=== PATIENT | female | born 1990 | race Caucasian/White ===

== ENCOUNTER 2019-07-25 11:46 | Inpatient (IN) | payer MEDICAID ==
[2019-07-25] MEDS ORDERED: Acetaminophen 325 MG Tab PO PRN (13:10)
[2019-07-25] MEDS ORDERED: Sodium Chloride 0.9% 10 ML Syringe FLUSH PRN (13:10)
[2019-07-25] MEDS ORDERED: Oxytocin/Normal Saline 30 UNIT/500 ML BAG IV SCH (13:15)
[2019-07-25] MEDS ORDERED: Lactated Ringers 1,000 ML IV SCH (13:15)
--- NOTE | 2019-07-25 15:50 | HP ---
LOCATION: [facility]. HISTORY OF PRESENT ILLNESS: The patient is a 28-year-old G1 at 37 weeks and 4 days, who noticed leakage of fluid at roughly 9 a.m. this morning. No real contractions. She had no vaginal bleeding. Good movement. The patient has had good care with Dr. Mccrary. OB HISTORY: She is a G1. 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 PAST MEDICAL HISTORY: Negative. PAST SURGICAL HISTORY: Negative. SOCIAL HISTORY: The patient does not smoke. ALLERGIES: The patient has no known drug allergies. LABS: Pap smear was normal. Blood type is A positive, antibody negative, rubella immune, RPR negative, hep B negative, HIV negative, gonorrhea negative. She did have a chlamydia test of cure, which was negative. One-hour was normal. Group B Strep was negative. Her EDC is 08/11/2019 that is consistent with a 22-week gestational age ultrasound, which did show mildly abnormal kidneys including a cyst on the kidney and slightly small kidneys. She also had a followup ultrasound, which showed that persisted, therefore, we will likely do a ultrasound. PHYSICAL EXAMINATION: The patient is afebrile. Vital signs are stable. EFM is reactive and reassuring. There are irregular contractions. Bedside ultrasound did confirm cephalic, cervix is 1 cm, 60% effaced, and -3 station. LABORATORY DATA: White blood cell count 7.9, hemoglobin 13.8, and platelets of 221. ASSESSMENT AND PLAN: Intrauterine at term with premature rupture of membranes, group B Strep negative. I did advise this patient that we should start Pitocin since she has now been ruptured for over 4 hours and no signs of any active labor. She did consent to that, and we will do the renal ultrasound to follow up the kidneys. We will plan for vaginal delivery. [facility] /[id number] MTDD
[2019-07-25] MEDS ORDERED: hydrOXYzine HCl 25 MG Tab PO ONE (20:56)
[2019-07-25] MEDS ORDERED: Nalbuphine 10 MG/1 ML Vial IM ONE (22:33)
[2019-07-25] MEDS ORDERED: Nalbuphine 10 MG/1 ML Vial ONE (22:46)
[2019-07-25] MEDS: Lactated Ringers 1,000 ML IV SCH (23:06)
[2019-07-26] MEDS: Lactated Ringers 1,000 ML IV SCH ×6 (00:32→18:05)
[2019-07-26] MEDS ORDERED: fentaNYL 100 MCG/2 ML SDV IVPUSH ONE ×2 (00:42→02:36)
[2019-07-26] MEDS ORDERED: fentaNYL 100 MCG/2 ML SDV ONE (03:30)
[2019-07-26] MEDS ORDERED: EPINEPHrine 1 MG/1 ML Amp ONE ×2 (03:30→16:06)
[2019-07-26] MEDS ORDERED: Ondansetron 4 MG/2 ML SDV ONE (03:31)
[2019-07-26] MEDS ORDERED: Ondansetron 4 MG/2 ML SDV IV PRN (03:35)
--- NOTE | 2019-07-26 04:04 | PCM.PRNOTE ---
- Free Text/Narrative Note: Requested to provide analgesia to full term patient in severe pain. Upon entering the room, patient is sitting on edge of bed complaining of severe abdominal/pelvic pain and discomfort. Procedure was discussed with patient including adverse outcomes and expectations. Pt consented to analgesia, SAB/ IT. Pt placed into a proper sitting position. Landmarks for SAB/IT were identified and marked. Hands were washed and appropriate PPE was applied. Back was prepped with betadine x3. A sterile, transparent, fenestrated drape was applied. Excess betadine was removed. Using 3 mL of a 1% lidocaine solution , a skin wheel was placed at the L2/L3 interspace. A 24 ga (4 inch) Pencan spinal needle was inserted until positive for CSF. Negative for heme or paresthesias. Injected fentanyl 20 mcg, sufentanil 20 mcg, and 7.5 mg of a 0.75 % bupivacaine solution with an epi wash. Pt was placed left lateral position for approximately 20 minutes. There were zero complications or adverse outcomes. Will continue to monitor. Procedure Date & Time: 07/26/19 [id number]
[2019-07-26] MEDS ORDERED: Naloxone 2 MG/2 ML Syringe IVPUSH PRN (05:06)
[2019-07-26] MEDS ORDERED: Methylergonovine 0.2 MG/1 ML Amp IM PRN (05:06)
[2019-07-26] MEDS ORDERED: Tranexamic Acid 1,000 MG in Sodium Chloride 0.9% 100 ML IV PRN (05:06)
[2019-07-26] MEDS ORDERED: diphenhydrAMINE 50 MG/ML SDV IVPUSH PRN (05:06)
[2019-07-26] MEDS ORDERED: Acetaminophen/oxyCODONE 325-5 MG Tab PO PRN (05:06)
[2019-07-26] MEDS ORDERED: Misoprostol 400 MCG (4 X 100 MCG TAB) RECTAL PRN (05:06)
[2019-07-26] MEDS ORDERED: ePHEDrine 50 MG/ML SDV IVPUSH PRN (05:06)
[2019-07-26] MEDS ORDERED: Carboprost Tromethamine 250 MCG/1 ML Amp IM PRN (05:06)
[2019-07-26] MEDS ORDERED: ceFAZolin 2 GM in Premix Bag 1 BAG IV ONE (05:08)
[2019-07-26] MEDS ORDERED: Citric Acid/Sodium Citrate Solution 30 ML Cup PO ONE (05:08)
[2019-07-26] MEDS ORDERED: Oxytocin/Normal Saline 60 UNIT/1,000 ML BAG ONE (05:20)
[2019-07-26] MEDS: Prenatal Multivitamin with Calcium/Folic Acid/Iron Tab PO SCH (09:42)
[2019-07-26] MEDS: Simethicone 80 MG Tab.Chew PO SCH ×5 (09:42→21:15)
--- NOTE | 2019-07-26 11:58 | OR ---
DATE: 07/26/2019 PREOPERATIVE DIAGNOSES: 1. Intrauterine at 37-5/7th weeks confirmed with 22-1/7th week ultrasound. 2. Nonreassuring status. 3. tachycardia. 4. Rupture of membranes approximately 20 to 21 hour prior to delivery. 5. History of chlamydia in the , treated and negative on 05/06/2019. 6. Group B Streptococcus negative. 7. Concerns with kidney being asymmetric with no other concerns, will do followup. 8. 1, para 0. POSTOPERATIVE DIAGNOSES: 1. Intrauterine at 37-5/7th weeks confirmed with 22-1/7th week ultrasound-delivered. 2. Nonreassuring status. 3. tachycardia. 4. Rupture of membranes approximately 20 to 21 hour prior to delivery. 5. History of chlamydia in the , treated and negative on 05/06/2019. 6. Group B Streptococcus negative. 7. Concerns with kidney being asymmetric with no other concerns, will do followup. 8. 1, para 0. 9. Nuchal cord x1, reduced bluntly with delivery. PROCEDURE PERFORMED: Pitocin on 07/25/2019 and 07/26/2019 followed by IUPC on 07/26/2019 followed by primary low transverse with 2-layer uterine closure. REVENUE STAMP CLERK: Milla Mcpherson MD ANESTHESIA: Spinal. ESTIMATED BLOOD LOSS: 700 mL. IV FLUIDS: 900 mL. URINE OUTPUT: 150 mL and dark quentin with pink tinged with Hunt placed prior to delivery. START: 6:04. UTERINE INCISION: 6:05. DELIVERY: 6:05. STOP: 6:22. FINDINGS: Female, scores of 9 and 9, weight pending. DESCRIPTION OF PROCEDURE IN DETAIL: After proper consent was obtained, the patient was brought the operating room, where spinal anesthetic was administered. Hunt was placed under preoperative under sterile conditions. Abdomen was prepped and draped in normal sterile fashion using Betadine scrubs for timeliness. The patient was placed in supine position with left lateral tilt. A skin incision was then made over the lower abdomen in a transverse Pfannenstiel-type fashion. This was carried down the fascia and scored in the midline. Subcutaneous tissue was raked laterally bluntly, and fascial incision was extended superiorly, inferiorly and laterally using blunt technique, it from rectus muscles and pyramidalis muscles as well. Rectus muscles were in the midline with blunt technique. Abdominal cavity was entered with blunt technique. Incision was extended superiorly and inferiorly with blunt technique. Dennis O large retractor was then introduced and used. Vesicouterine peritoneum was identified and incised in transverse fashion with Metzenbaum scissors and bladder flap was made digitally. A curvilinear incision was made on the lower uterine segment. At 0605 hours, uterus was entered sharply. Clear fluid returned. Uterine incision was then extended in transverse fashion using blunt technique. vertex was then delivered up from the pelvis through the uterine incision followed by rest of the infant with nuchal cord x1 reduced bluntly with delivery. Mouth and nares were suctioned on the patient's lap, cord was doubly clamped and cut, and the was brought over to team. Then, approximately 10 mL of cord blood was then obtained for labs. Placenta then delivered with gentle cord traction and fundal massage. Uterine cavity then cleared of all blood clots and debris with lap sponge. Espinoza clamps were used to grasp the uterine incision. This was closed in a running locked fashion and tied at lateral margins with 1-0 Vicryl. Second imbricating layer was then applied, using 1-0 Vicryl and tied at lateral margins. Right lateral portion of the incision did have some bleeding and 1 krfgjf-sv-jyfen stitch was applied and hemostasis was reassured. First inspection of the uterine incision revealed hemostasis. Dennis O retractor was then removed and paracolic gutters were then cleared of all blood clots and debris with lap sponge. Anterior cul-de-sac was irrigated copiously and all blood clots and debris removed. Second and final inspection of the uterine incision and anterior cul-de-sac revealed hemostasis. Rectus muscles were then reapproximated in the midline with yjnqwq-ur-kjbyp stitch using 1-0 Vicryl. Subfascial tissue was found to be hemostatic and fascia was closed in a running fashion and tied at lateral margins with 0 looped PDS. Subcutaneous tissue was irrigated copiously. Hemostasis was reassured. Skin was reapproximated with burke. Sterile Aquacel dressing was applied. The uterine fundus was firm and massaged at the conclusion of this case -2 below the umbilicus. No immediate complications were noted. Sponge, lap, and needle counts were correct. The patient received 2 g of Ancef preoperatively, Pitocin per protocol and will receive Toradol at the conclusion of case for pain control. Mother and infant are currently stable at the time of dictation. [facility] /[id number]
--- NOTE | 2019-07-26 12:19 | PN ---
DATE: 07/25/2019 SUBJECTIVE: The patient is mildly feeling her contractions, not breathing through them or anything. She states they are mild. OBJECTIVE: heart tones in the 150s range, some accelerations have been seen. Tocometer reveals contractions every 2 to 3 minutes. Pitocin is currently at 4 milliunits per minute. Vaginal exam reveals her to be 1.5 cm, 60% effaced, -1 station, vertex suspected. Clear fluid leaking from the vaginal area. ASSESSMENT: 1. Intrauterine 37 and 4/7th weeks, confirmed with 22 and /7th week ultrasound. 2. Rupture of membranes at 9:00 a.m. on 07/25/2019. No evidence of labor upon admission. Currently on Pitocin augmentation. 3. History of chlamydia being positive, treated and then negative after treatment on 05/06/2019. 4. Group B Streptococcus negative. 5. Concerns with kidney asymmetry on ultrasound. We will re-evaluate after delivery with ultrasound of the kidneys. 6. G1, P0. PLAN: We will continue close augmentation. Follow clinically and closely. Follow for any signs or symptoms of infection, tachycardia, fever or any other concerns. The patient understands and agrees. [facility] /[id number]
--- NOTE | 2019-07-26 12:34 | PN ---
DATE: 07/26/2019 SUBJECTIVE: The patient is breathing through her contractions. She has been given some oxygen, IV fluids, and turned as there were concerns with heart tones after Nubain was given. OBJECTIVE: heart tones in the 150s. I can see at least 2 accelerations within the last 10 minutes. There was 1 with vaginal exam. Tocometer reveals contractions every 2 minutes on average. Vaginal exam reveals her to be 1.5 cm to 2 cm, 60% effaced, -3 station. Possible caput felt, and IUPC placed after discussion with the patient. ASSESSMENT AND PLAN: Intrauterine at 37 and 5/7th weeks now, confirmed with 22 and 1/7th week ultrasound with rupture of membranes at 9 a.m. on 07/25/2019 without labor. Given Pitocin. GBS negative. G1, P0. Plan: At this point in time, we will continue to follow and maternal status closely. The patient is currently afebrile, and we will follow heart tones as well. The patient understands and agrees with the above treatment plan. [facility] /[id number]
--- NOTE | 2019-07-26 12:52 | PN ---
DATE: 07/26/2019 SUBJECTIVE: The patient's contractions are getting stronger. OBJECTIVE: heart tones in the 140s to 150s. Acceleration noted with vaginal exam as well as copious amounts of clear fluid with vaginal exam noted. She is 80% effaced, -1 station, vertex suspected. Tocometer reveals contractions every 2 minutes on average. MVU is appearing adequate. Pitocin is at 6 milliunits/minute. ASSESSMENT: Intrauterine now at 37 and 5/7th weeks with rupture membranes at 9 a.m. on 07/25/2019 without labor, currently on Pitocin augmentation, in group B streptococcus negative, 1 and para 0, now having cervical change, status post intrauterine and Pitocin augmentation, acceleration noted with vaginal exam and thereafter as well. PLAN: We will continue to follow clinically and closely. The patient understands and agrees with the above treatment plan. [facility] /[id number]
[2019-07-26] MEDS: Ketorolac 30 MG/ML SDV IVPUSH SCH ×2 (12:53→17:29)
--- NOTE | 2019-07-26 13:01 | PN ---
DATE: 07/26/2019 SUBJECTIVE: The patient is tolerating her contractions. She has had an intrathecal. She was 5 cm before intrathecal was given. OBJECTIVE: heart tones in the 180s to 190s. I can see at least one acceleration but also a variable deceleration and late deceleration within a 10- minute period. Tocometer reveals contractions every couple of minutes. Vaginal exam reveals her to be 5 cm, 85%-90% effaced -1 station, vertex suspected with marked caput noted which has been unchanged since prior to her intrathecal. ASSESSMENT: Intrauterine at 37-5/7th weeks confirmed at 22-1/7th week ultrasound now with rupture of membranes approximately 20 hours with distress including tachycardia and nonreassuring status. I did discuss this with the patient and her male partner, and I did discuss with them recommendation to proceed with primary low transverse . I did discuss with them risks, benefits, alternatives, and complications of including, but not limited to, infection, bleeding, damage to organs such as bowel, bladder, tubes, uterus, ovaries, sometimes fetus rarely needing a blood transfusion or further surgery, and rarer maternal or . She understands, agrees, and wishes to proceed. Verbal and written consent were obtained. Questions were answered. We will proceed to the OR as soon as crew is ready and available. They understand and agree with the above treatment plan. 2 g Ancef has been written for in 4s as well as Bicitra. Last oral intake was over an hour ago with water, and last solid intake was over at least 4 hours by their history. PLAN: We will proceed as above. They understand and agree. We will proceed to the OR as soon as crew is ready and available. [facility] /[id number]
[2019-07-26] MEDS ORDERED: Ketorolac 30 MG/ML SDV IVPUSH ONE (16:05)
[2019-07-26] MEDS ORDERED: Bupivacaine 0.75%/D5W 2 ML Amp ONE (16:06)
[2019-07-26] MEDS ORDERED: fentaNYL 100 MCG/2 ML SDV ITHECAL ONE (16:06)
[2019-07-26] MEDS ORDERED: Oxytocin/Normal Saline 30 UNIT/500 ML BAG IV ONE (16:19)
[2019-07-27] MEDS: Ketorolac 30 MG/ML SDV IVPUSH SCH (00:06)
[2019-07-27] MEDS: Acetaminophen/oxyCODONE 325-5 MG Tab PO PRN ×3 (05:57→23:45)
[2019-07-27] MEDS: Ibuprofen 800 MG Tab PO PRN ×2 (08:46→17:21)
[2019-07-27] MEDS: Docusate Sodium 100 MG Cap PO PRN ×2 (08:46→23:44)
[2019-07-27] MEDS: Simethicone 80 MG Tab.Chew PO SCH ×4 (08:46→21:14)
[2019-07-27] MEDS: Prenatal Multivitamin with Calcium/Folic Acid/Iron Tab PO SCH (08:46)
[2019-07-28] MEDS: Ibuprofen 800 MG Tab PO PRN ×2 (05:02→20:31)
[2019-07-28] MEDS: Docusate Sodium 100 MG Cap PO PRN ×2 (10:22→20:26)
[2019-07-28] MEDS: Prenatal Multivitamin with Calcium/Folic Acid/Iron Tab PO SCH (10:22)
[2019-07-28] MEDS: Ferrous Sulfate 325 MG Tab PO SCH (10:22)
[2019-07-28] MEDS: Simethicone 80 MG Tab.Chew PO SCH ×4 (10:23→22:18)
--- NOTE | 2019-07-28 11:47 | PN ---
DATE: 07/27/2019 Postop day #1 status post primary low transverse with 2-layer uterine closure. SUBJECTIVE: The patient is tolerating p.o. She has ambulated. Hunt has been removed. She has not urinated. She has not passed flatus. Pain is under control. OBJECTIVE: Vital Signs: Temperature 98.3, heart rate 62, blood pressure 114/64, respiratory rate 16. Lungs: Clear to auscultation bilaterally. Heart: S1, S2. Regular rate and rhythm. Genitourinary: Firm uterus at approximately minus 1 below umbilicus. Skin: Aquacel dressing is dry and intact. SCDs and MARJORIE hose are on. LABORATORY DATA: White cell count 16.5, hemoglobin 10, platelets 180. ASSESSMENT AND PLAN: Postop day #1 status post primary low transverse section with 2-layer uterine closure done for nonreassuring status, tachycardia, and had rupture of membranes approximately 20 to 21 hours prior to admission. No signs or symptoms of infection at this point in time. White cell count I suspect is due to demargination. We will recheck a CBC tomorrow and follow up clinically and closely. The patient understands and agrees with the above treatment plan. [facility] /[id number]
--- NOTE | 2019-07-28 11:53 | PN ---
DATE: 07/28/2019 Postoperative day #2. SUBJECTIVE: The patient is tolerating p.o., ambulating, urinating, and passing flatus. Pain is under control. OBJECTIVE: Vital Signs: Temperature 99, heart rate 68, blood pressure 108/72, respiratory rate 16. Lungs: Clear to auscultation bilaterally. Heart: S1 and S2. Regular rate and rhythm. Genitourinary: Firm uterus around the umbilicus. Aquacel dressing is dry and intact. Extremities: No peripheral edema. No calf pain. LABORATORY DATA: White cell count 10.4, hemoglobin 8.6, and platelets 177. ASSESSMENT AND PLAN: 1. Postoperative day #2, status post primary low transverse section with 2-layer uterine closure for tachycardia and nonreassuring status with rupture of membranes approximately 20 hours prior to delivery. White cell count is coming down. Hemoglobin is down to 8.6. We will watch closely. 2. Anemia of acute blood loss. Hemoglobin down to 8.6. We will watch closely. The patient is asymptomatic. We will start iron. Recheck CBC tomorrow. Otherwise, plans were discussed with the patient. She understands and agrees, possible discharge tomorrow. [facility] /[id number]
[2019-07-29] MEDS: Prenatal Multivitamin with Calcium/Folic Acid/Iron Tab PO SCH (08:23)
[2019-07-29] MEDS: Docusate Sodium 100 MG Cap PO PRN (08:23)
[2019-07-29] MEDS: Ferrous Sulfate 325 MG Tab PO SCH (08:23)
[2019-07-29] MEDS: Ibuprofen 800 MG Tab PO PRN (08:24)
[2019-07-29] MEDS: Simethicone 80 MG Tab.Chew PO SCH ×2 (08:24→14:42)
--- NOTE | 2019-07-29 12:42 | DISCH ---
ADMITTING DIAGNOSES: 1. Intrauterine at 37 and 4/7 weeks confirmed on 22 and 1/7 weeks ultrasound. 2. Rupture of membranes at approximately 9 a.m. on 07/25/2019. No evidence of labor. 3. History of chlamydia tested positive and treated and then negative on 05/06/2019. 4. GBS negative. 5. Abnormal ultrasound with asymmetric size. No other concerns. 6. G1, P0. DISCHARGE DIAGNOSES: 1. Intrauterine at 37 and 5/7 weeks confirmed on 22 and 1/7 weeks ultrasound, delivered. 2. Rupture of membranes at approximately 9 a.m. on 07/25/2019. No evidence of labor. 3. History of chlamydia tested positive and treated and then negative on 05/06/2019. 4. GBS negative. 5. Abnormal kidney ultrasound with asymmetric size. No other concerns. 6. G1, P0. 7. tachycardia. 8. Nonreassuring status. 9. Nuchal cord x1, reduced bluntly at delivery. 10.Anemia of acute blood loss, hemoglobin dropping down to 9.1 from predelivery hemoglobin of 13.8 with the lowest being 8.6, followed serially. PROCEDURE PERFORMED: Pitocin on 07/25/2019 as well as 07/26/2019 followed by IUPC and primary low transverse 2-layer uterine closure on 07/26/2019. HISTORY OF PRESENT ILLNESS: Please see H and P. SUMMARY OF HOSPITAL COURSE: The patient was admitted on the above date with the above diagnosis through Dr. Quach. Please see his notes and history and physical done by him. She had rupture of membranes. No evidence of active labor, underwent Pitocin augmentation, subsequently followed by IUPC placement and after approximately 20 to 21 hours of ruptured membranes prior, tachycardia with nonreassuring status developed and she underwent primary low transverse 2-layer uterine closure under spinal anesthetic with an EBL of 700 mL yielding a female with score of 9 and 9, weighing 7 pounds 0 ounce (3170 g) with nuchal cord x1 and reduced bluntly at delivery. Please see operative report for further details. On postop day #1 and #2, please see progress notes. Hemoglobin dropped, lowest at 8.6 on 07/28/2019. On the date of discharge, it was 9.1. The patient was tolerating p.o., was ambulating, urinating, passing flatus, and requesting discharge. PHYSICAL EXAMINATION: Vital Signs: Last set of vitals updated and listed in the chart. Temperature 98.3, blood pressure 109/75, heart rate is 93. Appearance: No apparent distress. Lungs: Clear to auscultation bilaterally. Heart: S1, S2. Regular rate and rhythm. Abdomen: Firm uterus, right above the umbilicus. Aquacel dressing is dry and intact. No peripheral edema. No calf pain. DISCHARGE LABORATORY DATA: White cell count 7.6 and 9.1, platelets 202. CONDITION ON DISCHARGE COMPARED TO CONDITION ON ADMISSION: Improved. DISCHARGE INSTRUCTIONS: 1. Diet as tolerated. 2. Activity: No lifting more than 20 pounds. No sit-ups or straining. Pelvic rest with immediate return fertility discussed with the patient. 3. Reasons to go to the emergency room were discussed with the patient in detail including, but not limited to temperature greater than 100.4; foul- smelling discharge; red or tender breasts; or increased vaginal bleeding. DISCHARGE MEDICATIONS: [id number] ibuprofen for pain, iron sulfate 325 b.i.d. x6 weeks, vitamins x6 weeks, Colace 100 mg b.i.d. p.r.n., and Percocet 5/325 1 to 2 q.6 hours p.r.n., #15, no refills. Discussed the use of these medications, adverse effects, as well as precautions with driving. FOLLOWUP: On 08/02/2019 for staple removal with her baby. Did discuss with her in the interim reasons to return or go to the emergency room in the interim with her baby as well. She understands and agrees with the above treatment plan. Please see discharge paperwork for further details as well. [facility] /[id number]
== END 2019-07-29 14:15 | disposition home or self-care (01) | DRG 787 ==
LOC: DL.OBCHECK 11:46 → DL.OB 13:10 → UNDOADMOB 13:19 → DL.OB 13:19 → DL.MS 07-26 05:18 → OBSVTOIN 07-26 06:05
PROVIDERS: ADMIT Obstetrics & Gynecology; ATTEND Family Medicine
PROC: 10D00Z1 Extraction of Products of Conception, Low, Open Approach (ICD-10-PCS; principal; 2019-07-26)
PROC: 10H07YZ Insertion of Other Device into Products of Conception, Via Natural or Artificial Opening (ICD-10-PCS; 2019-07-26)
DX: O36.8330 Maternal care for abnormalities of the fetal heart rate or rhythm, third trimester, not applicable or unspecified (principal); D62 Acute posthemorrhagic anemia; O69.81X0 Labor and delivery complicated by cord around neck, without compression, not applicable or unspecified; O99.02 Anemia complicating childbirth; Z3A.37 37 weeks gestation of pregnancy; Z37.0 Single live birth
CPT/HCPCS: 01961; 01967; 36415; 51702; 85027; 86850; 86900; 86901; A9270-GY; J0171; J0690; J1885; J2300; J2405; J2590; J3010; J7120

== ENCOUNTER 2020-10-12 09:24 | Inpatient (IN) | payer SELFPAY ==
[2020-10-12] MEDS ORDERED: Tranexamic Acid 1,000 MG in Sodium Chloride 0.9% 100 ML IV PRN ×4 (09:25)
[2020-10-12] MEDS ORDERED: Acetaminophen 325 MG Tab PO PRN (09:25)
[2020-10-12] MEDS ORDERED: Sodium Chloride 0.9% 10 ML Syringe FLUSH PRN (09:25)
[2020-10-12] MEDS ORDERED: diphenhydrAMINE 50 MG/ML SDV IVPUSH PRN (09:25)
[2020-10-12] MEDS ORDERED: Naloxone 2 MG/2 ML Syringe IVPUSH PRN (09:25)
[2020-10-12] MEDS ORDERED: Methylergonovine 0.2 MG/1 ML Amp IM PRN (09:25)
[2020-10-12] MEDS ORDERED: Citric Acid/Sodium Citrate Solution 30 ML Cup PO ONE (09:25)
[2020-10-12] MEDS ORDERED: Misoprostol 400 MCG (4 X 100 MCG TAB) RECTAL PRN (09:25)
[2020-10-12] MEDS ORDERED: Acetaminophen/oxyCODONE 325-5 MG Tab PO PRN ×2 (09:25)
[2020-10-12] MEDS ORDERED: Carboprost Tromethamine 250 MCG/1 ML Amp IM PRN (09:25)
[2020-10-12] MEDS ORDERED: ePHEDrine 50 MG/ML SDV IVPUSH PRN (09:25)
[2020-10-12] MEDS ORDERED: Ondansetron 4 MG/2 ML SDV IVPUSH PRN ×2 (09:25)
[2020-10-12] MEDS ORDERED: Oxytocin/Normal Saline 60 UNIT/1,000 ML BAG ONE (09:28)
[2020-10-12] MEDS ORDERED: Lactated Ringers 1,000 ML IV SCH (09:30)
[2020-10-12] MEDS ORDERED: Oxytocin/Normal Saline 30 UNIT/500 ML BAG IV SCH (09:30)
[2020-10-12] MEDS ORDERED: Ketorolac 30 MG/ML SDV IVPUSH SCH (09:30)
[2020-10-12] MEDS: Lactated Ringers 1,000 ML IV SCH ×4 (09:30→21:29)
[2020-10-12] MEDS: ceFAZolin 2 GM in Premix Bag 1 BAG IV ONE (10:28)
--- NOTE | 2020-10-12 13:05 | OR ---
DATE: 10/12/2020 PREOPERATIVE DIAGNOSES: 1. Intrauterine at 37 and 3/7 weeks by 6 and 1/7 weeks ultrasound. 2. Active labor upon admission. 3. Previous , request repeat low transverse . 4. GBS positive. 5. Keloid scar, discussed with the patient and shared decision made to proceed through the previous scar if not enough tissue around this area to remove it. 6. G2, P1-0-0-1. POSTOPERATIVE DIAGNOSES: 1. Intrauterine at 37 and 3/7 weeks by 6 and 1/7 weeks ultrasound, delivered. 2. Active labor upon admission. 3. Previous , request repeat low transverse . 4. GBS positive. 5. Keloid scar, discussed with the patient and shared decision made to proceed through the previous scar if not enough tissue around this area to remove it. 6. G2, P1-0-0-1. 7. Extensive scar tissue from uterus to peritoneum throughout requiring lysis of adhesions and inability to exteriorize the uterus or use Dennis O retractor. 8. Difficulty delivering vertex requiring Kiwi vacuum assistance. PROCEDURE PERFORMED: Repeat low transverse with Kiwi vacuum assistance. PARI MUTUEL TICKET SELLER: Priya Alonzo, PGY-III ; Pirya Reynolds, PGY III; and Sandy Lowery MS3. ANESTHESIA: Spinal. ESTIMATED BLOOD LOSS: 800 mL. IV FLUIDS: 400 mL of Pitocin, 2000 mL of lactated Ringer's. URINE OUTPUT: 225 mL and clear yellow. START: 10:45. UTERINE INCISION: 10:54. DELIVERY: 10:56. STOP: 11:32. FINDINGS: Female, scores 8 and 9, weight pending. DESCRIPTION OF PROCEDURE IN DETAIL: After appropriate consent was obtained, the patient was brought to the operating room, where spinal anesthetic was administered. A Hunt was placed in the preop under sterile conditions. The abdomen was prepped and draped in the normal sterile fashion. The patient was placed in supine position with left lateral tilt. A skin incision was then made over lower abdomen in transverse Pfannenstiel-type fashion over a previous scar and keloid after discussion with the patient as above. This was carried down to the fascia, which did have some scarring and difficulty delineating planes and fascia was scored in the midline. Subcutaneous tissue was raked laterally with Delcid retractor. The fascial incision was extended in transverse fashion using curved Morales's. Luther clamps x2 were used to grasp the superior aspect of the fascia, and the rectus muscle was dissected from the fascia using sharp and blunt technique. In a similar fashion, Luther clamps x2 were used to grasp the inferior portion of the incision, and rectus and pyramidalis muscles were dissected from the fascia using blunt and sharp technique. Rectus muscles were then in midline with blunt technique. Abdominal cavity was entered in blunt technique, and an incision was attempted to be opened superiorly and inferiorly with blunt technique. Scar tissue was noted from the uterus to the peritoneal region, and under direct visualization, these adhesions were lysed using electrocautery. It was felt there were significant adhesions superior to window of view, and Dennis O retractor unable to be used due to this as well as uterus unable to be exteriorized. Subsequently, bladder blade was inserted. Vesicouterine peritoneum was identified and incised in transverse fashion with Metzenbaum scissors and bladder flap was made digitally. A curvilinear incision was made on the lower uterine segment at 1054 hours. Uterus was entered sharply. Clear fluid returned. Uterine incision was then extended in transverse fashion using blunt technique. vertex was then attempted to be delivered through the incision with difficulty. Kiwi vacuum was called for, applied to the vertex, pumped up to the green, and with gentle pulling, vertex was delivered. Kiwi vacuum was disengaged. Subsequently, rest of the infant was delivered with minimal difficulty. Kiwi vacuum was on for less than 20 seconds. Mouth and nares were suctioned. Cord was doubly clamped and cut. The infant was brought to the team. Then, approximately 10 mL of cord blood was obtained for labs. Placenta was then delivered with gentle cord traction and fundal massage. Uterine cavity was then cleared of all blood, clots, and debris with lap sponge. Espinoza clamps were used to grasp the uterine incision. This was closed in a running locked fashion and tied at lateral margins with 1-0 Vicryl. Left of midline, there was some bleeding, a aozrvl-hd-xnbne stitch was applied over this area and hemostasis reassured over this area. Superior portion of the uterus was then visualized as there was an area of bleeding. This was over area of adhesions between the peritoneum and the uterus. Under direct visualization, multiple hrykde-us-jxcom stitches and a running stitch were applied to this area and hemostasis reassured except for minimal oozing. Subsequently, Avitene sponge material that the OR had available for coagulation was cut to size and inserted over these areas and oozing stopped thereafter. First inspection of the uterine incision revealed hemostasis. This was watched very closely. Subsequently, superior portion of the uterus was visualized again and hemostasis reassured over this area, and then second inspection of the uterine incision and anterior cul-de-sac revealed hemostasis. Paracolic gutters were unable to be reached due to scar tissue. Minimal irrigation was used and anterior cul-de-sac was then reviewed as well as uterine incision and final inspection of the uterine incision and anterior cul-de-sac as well as superior portion of the uterus visualized and hemostasis was noted. Rectus muscles were then reapproximated in midline with mttmct-km-dhnhq stitch using 1-0 Vicryl. Subfascial tissues were found to be hemostatic. Fascia was closed in a running fashion and tied at lateral margins with 0 looped PDS. Subcutaneous tissue was irrigated copiously. Hemostasis reassured. Skin was reapproximated with medium burke. Sterile Aquacel dressing was applied. Uterine fundus firm, massaged at the conclusion of the case, -2 below umbilicus. No immediate complications were noted. Sponge, lap, and needle counts were correct. The patient received 2 g of Ancef preoperatively, Pitocin per protocol, and we will defer Toradol at the conclusion of the case at this time. Mother and infant are currently stable at the time of dictation. I also did discuss with the patient prior to the surgery going through her keloid scar due to her history as well as potential for a new keloid scar if we use a different incision technique and inability to remove current keloid. In addition, I did discuss with the patient with her extensive scar tissue that she had with the surgery that I would recommend her go to a higher level of care if she becomes again and/or need surgery. She understands and agrees with the above treatment plan. It was noted during the surgery, some oozing was noted with closing of the fascia. These areas were made hemostatic; and we will defer Toradol at this time. Mother is currently stable at the time of dictation. [facility] /[id number] MTDD
[2020-10-12] MEDS: Simethicone 80 MG Tab.Chew PO SCH ×3 (13:44→21:27)
[2020-10-12] MEDS: Docusate Sodium 100 MG Cap PO PRN (21:28)
--- NOTE | 2020-10-12 23:50 | OBOUT ---
DATE: 10/12/2020 TIME: 9:43 to 10:03. REASON FOR NONSTRESS TEST: 1. Intrauterine at 37-3/7 weeks by 6-1/7-week ultrasound. 2. Active labor upon admission. 3. Previous section, request repeat low-transverse section. 4. GBS positive. 5. Keloid scar. 6. -0-0-1. NONSTRESS TEST INTERPRETATION: During this time period, tone baseline is approximately 135, at least two 15 x 15 beats per minutes accelerations making this strip reactive and also reassuring. Tocometer reveals potential of 5 to 6 contractions felt during this time period. ASSESSMENT AND PLAN: 1. Nonstress test, reactive and reassuring. 2. Tocometer without contractions. PLAN: Please see admit history and physical done through [facility]. The patient was seen in the clinic, noted to be in active labor. Previous , requests repeat low-transverse . Was sent to the hospital. Orders were placed and recommended to proceed to the OR as soon as crew is ready and available as well as labs returned. [facility] /[id number]
[2020-10-13] MEDS: Docusate Sodium 100 MG Cap PO PRN ×2 (08:33→21:27)
[2020-10-13] MEDS: Simethicone 80 MG Tab.Chew PO SCH ×4 (08:33→21:27)
[2020-10-13] MEDS: Prenatal Multivitamin with Calcium/Folic Acid/Iron Tab PO SCH (08:33)
--- NOTE | 2020-10-13 08:34 | PN ---
DATE: 10/13/2020 SUBJECTIVE: No complaints this morning. Denies any chest pain, shortness of breath, nausea, vomiting, fever, chills. Ambulating without difficulty. Voiding. Tolerating p.o. Vaginal bleeding appropriate. Pain well controlled. OBJECTIVE: Current Vital Signs: Please see vital signs as documented in [employer]. General: Alert, no acute distress, appropriate affect. Abdomen: Soft, appropriately tender, fundus firm, -1 umbilicus. Skin: Incision clean, dry, and intact. [place] in place. Extremities: Nontender, nonconcerning edema. LABORATORY DATA: WBC 12.6 from 12.1 on admission. Hemoglobin 9.9 from 13.7 on admission. Platelets 184, from 218 on admission. ASSESSMENT AND PLAN: Fernanda is a G2, P2-0-0-2. The patient is status post repeat delivery yesterday. Today is postoperative day #1. 1. Maternal well-being: Meeting milestones. 2. [place] well-being: Routine nursery, bottle-feeding without difficulty. 3. Disposition: Routine cares. Advance activity. Anticipate discharge home on day #2 to #3. 4. Anemia: Hemoglobin on admission was 13.7. hemoglobin 9.9. Asymptomatic. Exam benign. PLAN: 1. Recommend iron supplementation with vitamin C and Colace. Continue vitamin. 2. Active labor upon admission. 3. Previous , requests repeat low-transverse . 4. GBS positive. 5. Keloid scar. 6. Extensive scar tissue from uterus to peritoneum requiring lysis of adhesions and inability to exteriorize the uterus or use of Dennis-O retractor. 7. Difficulty delivering vertex, requiring Kiwi vacuum assist. Seen with resident. Patient was personally seen and examined with the resident, Dr. Reynolds. I reviewed the noted scribed on my behalf and necessary changes have been made to reflect my opinion on the history, exam, assessment, and plan [facility] /[id number] MTDD
[2020-10-13] MEDS: ceFAZolin 2 GM in Premix Bag 1 BAG IV ONE (11:13)
[2020-10-13] MEDS: Ibuprofen 800 MG Tab PO PRN (16:30)
--- NOTE | 2020-10-14 07:05 | DISCH ---
ADMIT DIAGNOSES: 1. Intrauterine at 37-3/7 weeks by 6-1/7-week ultrasound. 2. Active labor upon admission. 3. Previous section, request repeat low transverse section. 4. Group B Streptococcus positive. 5. Keloid scar. Had discussion prior to admission and at admission to go through the scar. 6. G2, P1-0-0-1. DISCHARGE DIAGNOSES: 1. Intrauterine at 37-3/7 weeks by 6-1/7-week ultrasound, delivered. 2. Active labor upon admission. 3. Previous section, request repeat low transverse section. 4. Group B Streptococcus positive. 5. Keloid scar. Had discussion prior to admission and at admission to go through the scar. 6. G2, P1-0-0-1. 7. Extensive scar tissue noted with delivery, especially between uterus and peritoneum. 8. Difficulty delivering vertex, requiring Kiwi vacuum assistance. 9. Anemia, acute blood loss with hemoglobin dropping from 13.7 down to 9.9 with no symptoms elicited of anemia. PROCEDURE PERFORMED: Nonstress test followed by repeat low transverse section. PERSON PERFORMING: Tuan Mccrary MD FIRST ASSISTANTS: Priya Marques, MS-IV; Priya Reynolds MD, PGY-3; and Sandy Lowery, Medical Student, MS3 HISTORY OF PRESENT ILLNESS: Please see H and P. SUMMARY OF HOSPITAL COURSE: The patient admitted on the above date with above diagnosis. Underwent above procedures. Noted to have significant scarring with her to the point that it was discussed with the patient after delivery and upon discharge, if she does become again, they recommend delivering in a higher level of care where they have extra surgeons and OB/GYNs in case they have issues with her repeat at that time. Otherwise, postop day #1, please see progress note. On postop day #2, date of discharge, the patient is tolerating p.o., is ambulating, urinating, passing flatus, requesting discharge. Rarely using her pain meds. OBJECTIVE: Vital Signs: Temperature 98, heart rate 82, blood pressure 108/66, respiratory rate 16. Lungs: Clear to auscultation bilaterally. Heart: S1, S2. Regular rate and rhythm. Abdomen: Firm uterus, -2 below umbilicus. Aquacel dressing was changed day prior with a new one placed and there is minimal shadowing on the right side. No saturation noted. No peripheral edema. Pending is a discharge CBC. Postop day #1, CBC revealed white cell count 12.6, hemoglobin 9.9, platelets 184. CONDITION ON DISCHARGE COMPARED TO CONDITION ON ADMISSION: Improved. DISCHARGE INSTRUCTIONS: 1. Diet: As tolerated. 2. Activity: No lifting more than 20 pounds. No sit-ups or straining. Pelvic rest for the next 6 weeks with immediate return to fertility discussed. 3. Reason to return or go to the emergency room discussed with the patient in detail including limited to temperature greater than 100.4, foul-smelling discharge, red, hot, tender breasts, or increased vaginal bleeding. DISCHARGE MEDICATIONS: [id number] Tylenol and ibuprofen for pain; iron sulfate 325 b.i.d. x6 weeks, dispensed q.s., no refills; Colace 100 mg b.i.d. p.r.n., #60, no refills; and Percocet 5/325 one to two q.6 hours p.r.n., #20, no refills. Discussed use of this medication, adverse and unwanted effects, as well as precautions driving. FOLLOWUP: On Friday, 10/16, with Dr. Mccrary in the clinic, with baby as well. Did discuss importance of followup and ramifications of not doing so as well as reasons to return or go to the emergency room in regard to her as well. Please see discharge paperwork for further details. [facility] /[id number]
[2020-10-14] MEDS: Ibuprofen 800 MG Tab PO PRN (08:47)
[2020-10-14] MEDS: Docusate Sodium 100 MG Cap PO PRN (08:47)
[2020-10-14] MEDS: Prenatal Multivitamin with Calcium/Folic Acid/Iron Tab PO SCH (08:47)
[2020-10-14] MEDS: Simethicone 80 MG Tab.Chew PO SCH (08:47)
[2020-10-14] MEDS ORDERED: Dexamethasone 4 MG/ML SDV IV ONE (11:39)
[2020-10-14] MEDS ORDERED: ePHEDrine 50 MG/ML SDV IV ONE (11:39)
[2020-10-14] MEDS ORDERED: Oxytocin/Normal Saline 30 UNIT/500 ML BAG IV ONE (11:39)
[2020-10-14] MEDS ORDERED: Tranexamic Acid 1,000 MG in Sodium Chloride 0.9% 100 ML IV ONE (11:39)
[2020-10-14] MEDS ORDERED: Sodium Bicarbonate 4.2% 2.5 MEQ/5 ML SDV ONE (11:39)
[2020-10-14] MEDS ORDERED: Lactated Ringers 1,000 ML IV ONE (11:39)
[2020-10-14] MEDS ORDERED: Ondansetron 4 MG/2 ML SDV IV ONE (11:39)
[2020-10-14] MEDS ORDERED: Morphine PF 1 MG/ML Amp ONE (11:39)
== END 2020-10-14 11:40 | disposition home or self-care (01) | DRG 787 ==
LOC: DL.OB 09:24 → OBSVTOIN 10:56
PROVIDERS: ADMIT Family Medicine; ATTEND Family Medicine
PROC: 10D00Z1 Extraction of Products of Conception, Low, Open Approach (ICD-10-PCS; principal; 2020-10-12)
PROC: 4A1HXCZ Monitoring of Products of Conception, Cardiac Rate, External Approach (ICD-10-PCS; 2020-10-12)
DX: O34.211 Maternal care for low transverse scar from previous cesarean delivery (principal); D62 Acute posthemorrhagic anemia; Z3A.37 37 weeks gestation of pregnancy; Z37.0 Single live birth; O99.824 Streptococcus B carrier state complicating childbirth; O99.02 Anemia complicating childbirth; Z20.822 Contact with and (suspected) exposure to COVID-19
CPT/HCPCS: 01961; 36415; 59025; 59409; 85025; 85027; 86850; 86900; 86901; A9270-GY; J0690; J1100; J2274; J2405; J2590; J7120; U0002